=== PATIENT | female | born 1985 | race African-American/Black ===

== ENCOUNTER 2021-06-28 17:45 | Emergency (ER) | payer MEDICAID, SELFPAY ==
[~2021-06-28] VITALS: Ht 175.3 cm; Wt 68.0 kg
[~2021-06-28 17:45] MED LIST: GLIP5TAB13 PO; INSU100I7 SQ; METF-1022 PO
--- NOTE | 2021-06-28 17:45 | NUR ---
MANUEL ALS TO BED 10 @ 1088
[2021-06-28 17:47] VITALS: BP 149/99
--- NOTE | 2021-06-28 18:09 | NUR ---
35/F BIBA FROM CLINIC WITH C/O LOW BLOOD SUGAR. PER EMS PATIENT WAS SITTING IN THE LOBBY OF A CLINIC "FOR HOURS" WHEN STAFF ASSESSED PATIENT THEY STATE SHE WAS NOT RESPONSIVE AND BLOOD SUGAR WAS READING 24. EMS STATES THEY GAVE GLUCAGON ENROUTE TO ED. BLOOD SUGAR ON ARRIVAL 75. PATIENT ALSO C/O 10 HEADACHE, STATING SHE HAD "BRAIN SURGERY" IN THE PAST. PATIENT DENIES CP, SOB, FEVER, CHILLS. NO SIGNS OF CONFUSION OR HYPOGLYCEMIA, PATIENT IS ALERT AND ORIENTED X4, ANSWERING QUESTIONS APPROPRIATELY.
[2021-06-28 19:30] VITALS: BP 149/99
--- NOTE | 2021-06-28 19:31 | NUR ---
Patient discharged with v/s stable. Written and verbal after care instructions given and explained. Patient verbalized understanding. Ambulatory with steady gait. All questions addressed prior to discharge. Advised to follow up with PMD. PT THREW AWAY SHOES AND REFUSED TO TAKE THEM BACK
== END 2021-06-28 19:31 | disposition home or self-care (01) ==
LOC: MED 17:45
DX: E11.649 Type 2 diabetes mellitus with hypoglycemia without coma (principal); I10 Essential (primary) hypertension; Z85.841 Personal history of malignant neoplasm of brain; Z88.0 Allergy status to penicillin; Z79.84 Long term (current) use of oral hypoglycemic drugs; Z79.899 Other long term (current) drug therapy; Z98.890 Other specified postprocedural states
CPT/HCPCS: 99283